=== PATIENT | female | born 1965 | race Caucasian/White ===

== ENCOUNTER 2024-09-26 00:18 | Emergency (ER) | payer BC, OTHER ==
[~2024-09-26] VITALS: Ht 162.6 cm; Wt 81.6 kg
[2024-09-26] MEDS ORDERED: POLY119P3 PO (01:37)
[2024-09-26] MEDS ORDERED: ONDA4TAB5 PO (01:37)
[2024-09-26] MEDS ORDERED: ONDANSETRON 4 MG TAB.RAPDIS ONE (01:47)
[2024-09-26] MEDS ORDERED: DICYCLOMINE HCL 10 MG CAPSULE PO ONE (01:47)
[2024-09-26 01:50] LABS: PLATELET COUNT (AUTO) 399 K/uL (150-450); RED BLOOD CELL COUNT(AUTO) 4.04 MIL/uL (4.0-5.2); RED CELL DISTRIBUTION WIDTH 17.9 % (11.5-15.0); WHITE BLOOD COUNT (AUTO) 12.5 K/uL (4.3-11.0)
[2024-09-26] MEDS: ONDANSETRON 4 MG TAB.RAPDIS PO ONE (01:52)
[2024-09-26] MEDS: DICYCLOMINE HCL 10 MG CAPSULE PO ONE (01:52)
[2024-09-26 02:03] LABS: ASPARTATE AMINOTRANSFERASE 11.0 U/L (15-37); CALCIUM, SERUM 8.7 mg/dL (8.5-10.1); CREATININE 0.8 mg/dL (0.6-1.3); SODIUM SERUM 141.0 mmol/L (136-145); TOTAL PROTEIN, SERUM 6.7 g/dL (6.4-8.2); UREA NITROGEN, BLOOD 13.0 mg/dL (7-18)
[2024-09-26 02:10] LABS: APPEARANCE,URINE CLEAR (CLEAR); BLOOD, URINE NEGATIVE Ery/uL (NEGATIVE); LEUKOCYTE ESTERASE ,URINE 1+ (NEGATIVE); NITRITE, URINE NEGATIVE (NEGATIVE); UGLUCOSE NEGATIVE (NEGATIVE)
[2024-09-26 02:31] LABS: ADD URINE CULTURE YES; SQUAMOUS EPITHELIAL CELL,UR Few /HPF (None Seen)
[2024-09-26] MEDS ORDERED: DICY10CA37 PO (02:50)
[2024-09-26 02:55] VITALS: BP 133/70; TEMP 98.8; O2SAT 98
== END 2024-09-26 02:55 | disposition home or self-care (01) ==
LOC: ER 00:21
DX: R10.32 Left lower quadrant pain (principal); I10 Essential (primary) hypertension; K59.00 Constipation, unspecified
CPT/HCPCS: 99284; 74018; 85025; 87086; 83690; 83735; 81001; 36415; 80053; 86140; Q0162